=== PATIENT | female | born 1945 | race Caucasian/White ===

== ENCOUNTER → 2020-04-02 | Outpatient (CLI) | payer MEDICARE, BC | LOC: DIA.ED | DX: E11.9 Type 2 diabetes mellitus without complications (principal); Z79.4 Long term (current) use of insulin; I10 Essential (primary) hypertension; E66.8 Other obesity | CPT/HCPCS: G0108 ==

== ENCOUNTER → 2020-10-27 | Outpatient (CLI) | payer MEDICARE, BC | LOC: DIA.ED 05-05 07:43 | DX: E11.65 Type 2 diabetes mellitus with hyperglycemia (principal); Z79.4 Long term (current) use of insulin; I10 Essential (primary) hypertension ==

== ENCOUNTER 2021-05-30 17:32 | Emergency (ER) | payer MEDICARE, BC ==
[~2021-05-30] VITALS: Ht 160 cm; Wt 91.8 kg
[2021-05-30 20:00] VITALS: BP 136/64; PULSE 67; TEMP 98.5
== END 2021-05-30 20:10 | disposition home or self-care (01) ==
LOC: COL.ER 17:32
DX: S83.91XA Sprain of unspecified site of right knee, initial encounter (principal); E11.9 Type 2 diabetes mellitus without complications; I10 Essential (primary) hypertension; X50.1XXA Overexertion from prolonged static or awkward postures, initial encounter